=== PATIENT | male | born 1950 | race Caucasian/White ===

== ENCOUNTER 2023-09-10 14:56 | Emergency (ER) | payer MEDICARE, OTHER, SELFPAY ==
[2023-09-10] VITALS (14 sets, daily range): BP systolic 98–131; BP diastolic 66–87; BMI 37.3
[2023-09-10 15:32] LABS: % Basophils 0.4 % (0-2); % Eosinophils 1.6 % (0-6); % Immature Granulocytes 0.2 % (0-0.5); % Lymphocytes 18.5 % (20.5-51.1); % Monocytes 6.9 % (1.7-9.3); % Neutrophils 72.4 % (42.2-75.2); Absolute Eosinophils 0.2 10^3/uL (0-0.7); Absolute Lymphocytes 1.7 10^3/uL (1.2-3.4); Absolute Monocytes 0.6 10^3/uL (0.1-0.6); Absolute Neutrophils 6.6 10^3/uL (1.4-6.5); Hemoglobin 14.8 g/dL (13.0-18.0); Mean Corp Hgb Conc. 34.4 g/dL (33.0-37.0); Mean Corpuscular Hgb 28.6 pg (27.0-31.0); Mean Platelet Volume 9.3 fL (7.4-10.4); Nucleated Red Blood Cells % 0 % (-); Platelet Count 208 10^3/uL (130-400); Red Blood Cell Count 5.18 10^6/uL (4.70-6.10); Red Cell Dist. Width 13.2 % (11.5-14.5); White Blood Cell Count 9.2 10^3/uL (4.8-10.8)
[2023-09-10 15:46] LABS: ALT (SGPT) 31 U/L (0-50); AST (SGOT) 38 U/L (17-59); Albumin 3.9 g/dl (3.5-5.0); Alkaline Phosphatase 70 U/L (38-126); Blood Urea Nitrogen 21 mg/dl (9-20); Carbon Dioxide 28 mmol/L (22-30); Chloride 103 mmol/L (98-107); Glucose 145 mg/dl (70-99); Potassium 4.1 mmol/L (3.5-5.1); Sodium 134 mmol/L (135-145); Total Bilirubin 0.9 mg/dl (0.2-1.3); Total Protein 6.1 g/dl (6.3-8.2); eGFR 57.65
[2023-09-10 15:57] LABS: Troponin I < 0.012 ng/ml
--- NOTE | 2023-09-10 17:17 | ED.GENMED ---
History of Present Illness
General
Chief Complaint: Heart Rate Problem
Source: patient
Time Seen by Provider: 09/10/23 16:50
Travel History
Have you had any contact with someone who has COVID-19?: No
Do you have any symptoms of coronavirus? Fever > 100 degrees, chills, cough, shortness of breath, sore throat, loss of taste or smell, muscle aches, or headache?: No
History of Present Illness
History of Present Illness:
73-year-old male brought to the emergency room for evaluation of rapid heart rate, dizziness, generalized weakness. Symptoms began this morning. Patient does have history of A-fib. He has been prescribed Eliquis and has been taking it. He is
confident he has not missed any doses over the past 2 weeks. Patient does not have chest pain per se. Patient has had cardioversions x 2. Patient's uppers edge burnisher is Dr. Dorsey.
Past History
Past History
ED Past Medical History: Arrthythmia (afib), HTN, Hypercholesterolemia and Other (Crohn's disease, sleep apnea, atrial fibrillation)
ED Past Surgical History: Other (History of bowel surgery as well as a history of back surgery for disc protrusion)
Social History
Tobacco: Non-smoker
Alcohol: Occasional
Personal:
Living: with family
Employment: Employed
Phy Exam
Physical Exam
Physical Exam:
General: Awake, Alert, Oriented X3. No acute distress.
Vitals: Tachycardic
Head: Atraumatic
Eyes: Pupils equal, EOMI
Throat: Airway intact, no exudates
Neck: Trachea midline
Lungs: Clear and equal b/l
Heart: Regular rate, no murmurs
Abd: Soft, Nontender, No pulsatile mass
Neuro: Nonfocal
Skin: Warm, dry, no rash
Extremities: pulses equal b/l, no edema
Course
Orders/Labs/Results
Orders:
Orders
04/08/24 15:03
Electrocardiogram (*1) Urgent
Reason for Study: Chest Pain
09/10/23 15:04
EKG- Treatment ONCE
09/10/23 15:16
Complete Blood Count/With Diff Urgent
Comprehensive Metabolic Panel Urgent
Troponin I Urgent
09/10/23 17:09
Propofol [Diprivan] 20 ml .ROUTE .STK-MED
09/10/23 17:32
Electrocardiogram (*1) Urgent
Reason for Study: Atrial Fibrillation
EKG- Treatment ONCE
Abnormal Lab Results
09/10/23
15:16
Absolute Neuts (auto) 6.6 H 10^3/uL
(1.4-6.5)
Lymphocytes % 18.5 L %
(20.5-51.1)
Sodium 134 L mmol/L
(135-145)
BUN 21 H mg/dl
(9-20)
Glucose 145 H mg/dl
(70-99)
Total Protein 6.1 L g/dl
(6.3-8.2)
09/10/23 15:16
09/10/23 15:16
Vital Signs
Initial and Last Documented VS:
Initial Vital Signs
Temp Pulse Resp BP Pulse Ox
98.1 F 70 18 119/81 98
09/10/23 15:02 09/10/23 15:02 09/10/23 15:02 09/10/23 15:02 09/10/23 15:02
Last Documented Vital Signs
Temp Pulse Resp BP Pulse Ox
98.1 F 71 11 131/77 96
09/10/23 15:02 09/10/23 18:30 09/10/23 18:15 09/10/23 18:30 09/10/23 18:30
Procedures
Cardioversion
Indication:: Afib
Synchronized?: Yes
Energy Used: 200 joules
Successful?: Yes
ASA Risk Score: Class II
Any reaction or bad outcome to prior sedation/anesthesia?: No history of a reaction
Sedation level to be attained: moderate
Chart and allergies reviewed: Yes
Patient reassessed prior to sedation: Yes
Time out completed at (validating right patient & procedure): 17:26
History of difficult intubation: No
Airway free of obstruction: Yes
Patient has a gag reflex: Yes
Patient is able to open mouth: Yes
Patient has no dentures: Yes
Patient has no loose teeth: Yes
Medication administered by Provider during Moderate Sedation: IV Propofol (mg)
Total dose administered: 90
Time drug administered: 17:26
Start Time: 17:26
Stop Time: 17:41
MDM/Problems Addressed
Differential Diagnosis Includes:
Paroxysmal atrial fibrillation, PACs, SVT
MDM/Problems Addressed:
EKG is clearly A-fib. Patient is interested in just getting cardioverted. He is a good candidate as he is been compliant with his anticoagulation. Patient tolerated procedure well. After observation post sedation he returned to baseline.
Patient stable for discharge home. Recommend he call his uppers edge burnisher to arrange follow-up.
*Pulse Oximetry
Patient hypoxic: no
*EKG
Interpreted by ED Provider?: Yes
Interpretation: abnormal
Heart Rate: 146
Rate: tachycardiac
Rhythm: a-fib
Interval: normal interval
QRS Pattern: normal QRS
Ischemia: non-specific ST changes
*Software Configuration Analyst Interpretation
Rate: tachycardiac
Interpretation: abnormal
Heart Rate: 146
Rhythm: a-fib
*Critical Care Note
Total Time (30-74mins, 75-104mins- exclusive of procedures): Not Applicable
Update Note
Update Note:
Repeat EKG shows normal sinus rhythm
ED Attending Note
-
Portions of this chart may have been created with voice recognition software.� Occasional wrong word or��sound alike� substitutions may have occurred due to the inherent limitations of voice recognition software.
Discharge Plan
Departure
Patient Disposition: Home (Routine Discharge)
Date of Disposition: 09/10/23
Time of Disposition: 18:55
Patient with high blood pressure during this ER visit?: Yes
Condition: Good
Discharge Problem:
Paroxysmal A-fib
Instructions: Atrial Fibrillation (DC), Procedural Sedation, Adult ED
Prescriptions:
No Action
simvastatin 10 MG tablet
10 mg PO HS
tamsulosin 0.4 MG capsule
0.4 mg PO DAILY
cyanocobalamin (vitamin B-12) 1,000 MCG/ML solution
1,000 mcg IM MONTHLY
dutasteride 0.5 MG capsule
0.5 mg PO DAILY
glucosam-sod chondro-vit C-kevon 1 EACH tablet
1 ea PO DAILY
coenzyme Q10 50 MG tablet,chewable
200 mg PO DAILY
metoprolol succinate 25 MG tablet extended release 24 hr
25 mg PO DAILY
magnesium 500 mg Tablet
500 mg PO DAILY
eye lubricant combination no.1 2-0.9-1.8 % Drops
See Rx Instructions .ROUTE .COMPLEX
Rx Instructions:
1 drp into the eye(s)
clobetasol 0.025 % Cream
1 applic TOPICAL HS PRN (Reason: rash)
furosemide 40 mg Tablet
60 mg PO DAILY Qty: 1 0RF
Rx Instructions:
Please note dose increase- 1 1/2 tablets daily
Eliquis 5 MG tablet
5 mg PO BID Qty: 0 0RF
Rx Instructions:
Ok to resume tonight, 03/14 at usual time
quinapril [Accupril] 40 mg tablet
40 mg PO DAILY Qty: 90 5RF
Referrals:
Mika Francisco MD [Family Provider] -
Eryn Dykes DO [Active] -
Interventions
Interventions:
*Risk Screen - Suicide Last Done: 09/10/23 17:20
*General Assessment Last Done: 09/10/23 17:19
*Neglect/Abuse Screening Last Done: 09/10/23 17:19
ED- Fall Risk Assessment Last Done: 09/10/23 19:05
*Nursing Disposition Last Done: 09/10/23 19:05
ED- Cardiac Assessment Last Done: 09/10/23 16:43
ED- Pulmonary Assessment Last Done: 09/10/23 16:43
Discharge Date and Time
Discharge Date/Time: 09/10/23 19:06
Print Language: SAMI
== END 2023-09-10 19:06 | disposition home or self-care (01) ==
LOC: EMR 14:56
PROVIDERS: Emergency Medicine; EMERGENCY PHYSICIAN Emergency Medicine; FAMILY PHYSICIAN Family Medicine
DX: I48.0 Paroxysmal atrial fibrillation (principal); R00.2 Palpitations; R42 Dizziness and giddiness; R53.1 Weakness; I48.91 Unspecified atrial fibrillation; I10 Essential (primary) hypertension; E78.00 Pure hypercholesterolemia, unspecified; K50.90 Crohn's disease, unspecified, without complications; G47.30 Sleep apnea, unspecified
CPT/HCPCS: 99284; 92960; 80053; 84484; 85025; 93005

== ENCOUNTER 2024-01-07 16:17 | Emergency (ER) | payer MEDICARE, OTHER, SELFPAY ==
[2024-01-07] VITALS (10 sets, daily range): BP systolic 90–120; BP diastolic 65–97
--- NOTE | 2024-01-07 16:51 | ED.GENMED ---
History of Present Illness
General
Chief Complaint: Heart Rate Problem
Source: patient
Exam Limitations: none
Time Seen by Provider: 01/07/24 16:46
History of Present Illness
History of Present Illness:
See MDM
Past History
Past History
ED Past Medical History: Arrthythmia (afib), HTN, Hypercholesterolemia and Other (Crohn's disease, sleep apnea, atrial fibrillation)
ED Past Surgical History: Other (History of bowel surgery as well as a history of back surgery for disc protrusion)
Social History
Tobacco: Non-smoker
Alcohol: Occasional
Personal:
Living: with family
Employment: Employed
Phy Exam
Physical Exam
Physical Exam:
See MDM
Course
Orders/Labs/Results
Orders:
Orders
01/07/24 16:20
Electrocardiogram (*1) Urgent
Reason for Study: Atrial Fibrillation
EKG- Treatment ONCE
01/07/24 16:50
0.9% Sodium Chloride 500 ml [Nss] 500 ml IV BOLUS
Diltiazem HCl [Cardizem] 20 mg IV NOW STA
01/07/24 16:55
Complete Blood Count/With Diff Urgent
Comprehensive Metabolic Panel Urgent
Magnesium Urgent
Protime/PTT Urgent
01/07/24 18:00
Propofol [Diprivan] 20 ml .ROUTE .STK-MED
Abnormal Lab Results
01/07/24
16:55
MCV 79.2 L fL
(80.0-94.0)
Absolute Neuts (auto) 7.9 H 10^3/uL
(1.4-6.5)
Absolute Lymphs (auto) 1.1 L 10^3/uL
(1.2-3.4)
Neutrophils % 80.7 H %
(42.2-75.2)
Lymphocytes % 11.1 L %
(20.5-51.1)
BUN 25 H mg/dl
(9-20)
Glucose 117 H mg/dl
(70-99)
Total Protein 6.1 L g/dl
(6.3-8.2)
01/07/24 16:55
01/07/24 16:55
Vital Signs
Initial and Last Documented VS:
Initial Vital Signs
Temp Pulse Resp BP Pulse Ox
98.5 F 150 18 104/70 99
01/07/24 16:28 01/07/24 16:28 01/07/24 16:28 01/07/24 16:28 01/07/24 16:28
Last Documented Vital Signs
Temp Pulse Resp BP Pulse Ox
98.5 F 145 13 113/97 99
01/07/24 16:28 01/07/24 18:00 01/07/24 18:00 01/07/24 17:00 01/07/24 18:00
Procedures
Moderate Sedation
ASA Risk Score: Class II
Chart and allergies reviewed: Yes
Consent for anesthesia obtained: Yes
Time out completed (validating right patient & procedure): Yes
Moderate Sedation Start Time(when first medication is given): 18:18
History of difficult intubation: No
Airway free of obstruction: Yes
Patient has a gag reflex: Yes
Patient is able to open mouth: Yes
Patient has no dentures: Yes
Patient has no loose teeth: Yes
Medication administered by Provider during Moderate Sedation: IV Propofol (mg)
Total dose administered: 75
Time drug administered: 18:18
Moderate Sedation Procedure End Time: 18:30
Cardioversion
Indication:: Afib
Performed by:: Rey Vargas DO
Synchronized?: Yes
Energy Used: 150 joules
Number of attempts: 1
Successful?: Yes
Complications: None
ASA Risk Score: Class II
Any reaction or bad outcome to prior sedation/anesthesia?: No history of a reaction
Sedation level to be attained: moderate
Chart and allergies reviewed: Yes
Patient reassessed prior to sedation: Yes
Time out completed at (validating right patient & procedure): 18:16
History of difficult intubation: No
Airway free of obstruction: Yes
Patient has a gag reflex: Yes
Patient is able to open mouth: Yes
Patient has no dentures: Yes
Patient has no loose teeth: Yes
Medication administered by Provider during Moderate Sedation: IV Propofol (mg)
Total dose administered: 75
Time drug administered: 18:18
Start Time: 18:18
Stop Time: 18:30
MDM/Problems Addressed
Differential Diagnosis Includes:
HPI and MDM Narrative:
73-year-old male presenting with palpitations. Patient has a history of A-fib and states he has been cardioverted before. He claims compliance with Eliquis. Patient took an extra metoprolol earlier today with no relief. Symptoms started after
eating lunch.
On exam, he is well-appearing and nontoxic. He is tachycardic and irregular. Will give dose of IV Cardizem obtain basic blood work before discussing electrical cardioversion.
Physical exam
General: Well appearing and non-toxic
HEENT: protecting airway
Neck: appears supple
CV: No evidence of cyanosis. Tachycardic and regular
Resp: No accessory muscle use
Abd: Non-distended
Extremities: No deformities
Neuro: alert
Psych: Normal affect
Skin: Intact
Problems Addressed including Acute and Chronic Conditions affecting care:
1. A-fib with RVR
Acuity: acute
Prognosis: unstable
Details: Will give dose of IV Cardizem and attempt to chemically cardiovert.
Updates
Cardizem did not alter his heart rate. Blood work without significant abnormality. Patient signed consent for cardioversion.
Patient tolerated cardioversion well and is now in sinus rhythm. states that his avionic technician had mentioned ablation in the past. Discussed having this conversation again with cardiology
Differential Diagnosis (but not limited to): A-fib with RVR, dehydration, electrolyte abnormalities
Testing considered: Troponin
Drug therapy (if applicable): OTC meds, please see d/c instruction regarding Rx drugs
Amount and/or Complexity of Data Reviewed
Clinical info obtained from: Patient. states that cardiology had reference ablation
External data reviewed: N/A
Labs I independently reviewed (but not limited to): White blood cell count normal, hemoglobin normal, magnesium normal
Radiology: N/A
Pulse Ox: not hypoxic
EKG independently reviewed: A-fib with RVR, normal axis no STEMI
Production Helper: A-fib with RVR
Critical Care: The high probability of a clinically significant, sudden or life threatening deterioration of the cardiovascular system(s) required my full and direct attention, intervention and personal management. The aggregate critical care time
was 33 minutes. This time is in addition to time spent performing reported procedures but includes the following:
[x] Data Review and interpretation
[x] Patient assessment and monitoring of vital signs
[x] Documentation
[x] Medication orders and management
Risk of Complication:
Social Determinants of health: Good social support
Discussed with other providers: N/A
Escalation of Care includes Admit/Obs: After being observed in the Emergency Department, pt stable for discharge.
Occasional wrong word or 'sound a like' substitutions may have occurred due to the inherent limitations of voice recognition software. Read the chart carefully and recognize, using context, where substitutions have occurred.
*Critical Care Note
Total Time (30-74mins, 75-104mins- exclusive of procedures): 33 min
ED Attending Note
-
Portions of this chart may have been created with voice recognition software.� Occasional wrong word or��sound alike� substitutions may have occurred due to the inherent limitations of voice recognition software.
Discharge Plan
Departure
Patient Disposition: Home (Routine Discharge)
Date of Disposition: 01/07/24
Time of Disposition: 18:26
Patient with high blood pressure during this ER visit?: No
Discharge Problem:
Atrial fibrillation with RVR
Instructions: Atrial Fibrillation (DC), Cardioversion (DC), MODERATE SEDATION ADULT
Prescriptions:
No Action
simvastatin 10 MG tablet
10 mg PO HS
tamsulosin 0.4 MG capsule
0.4 mg PO DAILY
cyanocobalamin (vitamin B-12) 1,000 MCG/ML solution
1,000 mcg IM MONTHLY
dutasteride 0.5 MG capsule
0.5 mg PO DAILY
glucosam-sod chondro-vit C-kevon 1 EACH tablet
1 ea PO DAILY
coenzyme Q10 50 MG tablet,chewable
200 mg PO DAILY
metoprolol succinate 25 MG tablet extended release 24 hr
25 mg PO DAILY
magnesium 500 mg Tablet
500 mg PO DAILY
eye lubricant combination no.1 2-0.9-1.8 % Drops
See Rx Instructions .ROUTE .COMPLEX
Rx Instructions:
1 drp into the eye(s)
clobetasol 0.025 % Cream
1 applic TOPICAL HS PRN (Reason: rash)
furosemide 40 mg Tablet
60 mg PO DAILY Qty: 1 0RF
Rx Instructions:
Please note dose increase- 1 1/2 tablets daily
Eliquis 5 MG tablet
5 mg PO BID Qty: 0 0RF
Rx Instructions:
Ok to resume tonight, 03/14 at usual time
quinapril [Accupril] 40 mg tablet
40 mg PO DAILY Qty: 90 5RF
Referrals:
Mika Francisco MD [Family Provider] -
Activity Restrictions/Additional Instructions:
Please return for any worsening symptoms.
You may return at any time if you have further concerns.
Please follow up with your doctor at the first available appointment, preferably this week.
Continue your medications as prescribed. Please discuss your recurrent A-fib with your avionic technician.
Thank you for choosing [facility].
Interventions
Interventions:
*Risk Screen - Suicide Last Done: 01/07/24 16:28
*General Assessment Last Done: 01/07/24 16:28
*Neglect/Abuse Screening Last Done: 01/07/24 16:28
*ED COVID-19 Vaccine History Last Done: 01/07/24 16:28
Discharge Date and Time
Print Language: INDONESIAN
[2024-01-07] MEDS: CARDIZEM 20 MG IV (16:57)
[2024-01-07] MEDS: NSS 500 IV (16:58)
[2024-01-07 17:23] LABS: ALT (SGPT) 24 U/L (0-50); AST (SGOT) 36 U/L (17-59); Alkaline Phosphatase 67 U/L (38-126); Blood Urea Nitrogen 25 mg/dl (9-20); Calcium 9.2 mg/dl (8.4-10.2); Carbon Dioxide 25 mmol/L (22-30); Chloride 105 mmol/L (98-107); Glucose 117 mg/dl (70-99); Magnesium 1.8 mg/dl (1.6-2.3); Potassium 3.8 mmol/L (3.5-5.1); Sodium 139 mmol/L (135-145); Total Bilirubin 1.1 mg/dl (0.2-1.3); Total Protein 6.1 g/dl (6.3-8.2); eGFR 57.65
[2024-01-07 17:43] LABS: APTT 34.5 Sec (23.4-35.0); INR 1.12; PT 14.2 Sec (11.4-14.6)
[2024-01-07 18:13] LABS: Hematocrit 40.8 % (39.0-52.0); Hemoglobin 14.7 g/dL (13.0-18.0); Mean Corpuscular Hgb 28.5 pg (27.0-31.0); Mean Corpuscular Volume 79.2 fL (80.0-94.0); Mean Platelet Volume 10.1 fL (7.4-10.4); Platelet Count 240 10^3/uL (130-400); Red Blood Cell Count 5.15 10^6/uL (4.70-6.10); White Blood Cell Count 9.8 10^3/uL (4.8-10.8)
[2024-01-07 18:14] LABS: % Basophils 0.4 % (0-2); % Eosinophils 1.4 % (0-6); % Immature Granulocytes 0.2 % (0-0.5); % Lymphocytes 11.1 % (20.5-51.1); % Monocytes 6.2 % (1.7-9.3); % Neutrophils 80.7 % (42.2-75.2); Absolute Eosinophils 0.1 10^3/uL (0-0.7); Absolute Lymphocytes 1.1 10^3/uL (1.2-3.4); Absolute Monocytes 0.6 10^3/uL (0.1-0.6); Absolute Neutrophils 7.9 10^3/uL (1.4-6.5); Nucleated Red Blood Cells % 0 % (-)
== END 2024-01-07 19:35 | disposition home or self-care (01) ==
LOC: EMR 16:17
PROVIDERS: Emergency Medicine; EMERGENCY PHYSICIAN Student in an Organized Health Care Education/Training Program; FAMILY PHYSICIAN Family Medicine
DX: I48.91 Unspecified atrial fibrillation (principal); I10 Essential (primary) hypertension; E78.00 Pure hypercholesterolemia, unspecified; K50.90 Crohn's disease, unspecified, without complications; G47.30 Sleep apnea, unspecified; Z79.01 Long term (current) use of anticoagulants; Z88.8 Allergy status to other drugs, medicaments and biological substances; Z91.040 Latex allergy status
CPT/HCPCS: 99291; 92960; 99152; 96374; 80053; 83735; 85025; 85610; 85730; 93005

== ENCOUNTER 2024-05-14 08:25 | Day surgery (SDC) | payer MEDICARE, OTHER, SELFPAY ==
[2024-04-17 12:53] VITALS: BMI 37.7
[2024-05-14] VITALS (13 sets, daily range): BP systolic 127–149; BP diastolic 66–104
[2024-05-14 09:13] LABS: Glucose - Point of Care 162 mg/dl (70-99)
[2024-05-14 11:17] LABS: ACT-LR - POC 269 Seconds (116-155)
[2024-05-14 11:25] LABS: Glucose - Point of Care 119 mg/dl (70-99)
[2024-05-14 11:35] LABS: ACT-LR - POC 314 Seconds (116-155)
--- NOTE | 2024-05-14 11:56 | ITS.CL.ABL ---
Circular Saw Operator - Ablation
Ablation
Procedure Report:
ELECTROPHYSIOLOGY ABLATION STUDY
�
DATE:: May 14, 2024�����������������������������REFERRING: Dr. Mauricio Momin
�
INDICATION: Paroxysmal supraventricular tachycardia in the form of atrial fibrillation.� Also noted to have a paroxysmal atrial tachycardia or atypical atrial flutter possibly consistent with a pulmonary vein atrial tachycardia
�
HISTORY: See H and P.��As above
�
ANTIARRHYTHMIC DRUG: Discussed class I class III and arrhythmics patient opted for pulmonary vein isolation
�
PRE-PROCEDURE EMERSON: No atrial thrombus on intracardiac ultrasound and CT scan
�
PRESENTING RHYTHM: Sinus rhythm
�
'TIME-OUT':��called and confirmed.
�
SEDATION/ANESTHESIA:��provided via the anesthesia department using general anesthesia (LMA).
�
INTRAVENOUS/ARTERIAL ACCESS:
Right femoral venous - 10 Fr,
Left femoral venous - 8 Fr, 6 Fr
[id number] suture to bilateral femoral venous sites
Ultrasound guidance for bilateral femoral vein access was utilized by me to obtain access with demonstration of normal anatomy
CHADS-VASC Score:
�
HAS-Bled Score
�
PROCEDURE:
1.��A decapolar CS catheter was placed within the CS for mapping and pacing.��This was also used as the reference catheter for the 3-D map.
�
2. The intracardiac ultrasound catheter was positioned in the RA to identify the FO for targeting of transseptal puncture, assist��in identification of the pulmonary vein ostia, monitoring pre and post ablation pulmonary vein flow velocities,
monitoring for 'bubble' formation during RF application as a sign of thermal injury,��and to monitor for pericardial effusion during mapping and ablation procedure.���Left atrial size, LV ejection fraction, and pulmonary vein flows were monitored
pre and post ablation procedure. The other valves were inspected and found to be free of significant regurgitation or stenosis.
�
3.��Half of the calculated heparin bolus was administered prior to the first transeptal puncture.��Transseptal puncture was performed to diagnose RA and LA pressure so that safetey of LA mapping and ablation could be further assessed, and to access
the left atrium and pulmonary veins for mapping and ablation.��This entailed advancing an 16 Hungarian RF wire sheath apparatus with dilator into the superior vena cava and withdrawing both (monitoring intracardiac ultrasound, fluoroscopy and tip
pressure) with the tip oriented toward the atrial septum.��The fossa ovalis was engaged (indicated by sudden displacement of the sheath tip as well as tenting of the fossa seen on intracardiac ultrasound).��Left atrial access required a pass with
the [place] needle extended.��Left atrial catheter position was confirmed by pressure monitoring (RA mean pressure 8 mm Hg and LA mean presure 12 mm Hg), LA saturation (99%),��as well as fluoroscopy.��The sheath was advanced over the dilator
and positioned in the left atrium.���The remainder of the calculated heparin bolus was administered and heparin was
infused to maintain ACT at 300 -350 seconds throughout the case.
�
4.��RA pacing was performed via the proximal decapolar poles and LA pacing was performed via the distal decapolr poles.
�
5. A quadrapolar catheter was first positioned at the His position for His Bundle recording which was tagged via the 3-D Navex sytem, and then passed to the RVA for RV pacing and recording.
�
6. The multipolar catheter and PFA catheter were placed in each of the LIPV, LSPV, RSPV and the RIPV.��
�
7.��Next, a 3-D map was created using Navex.���A 3-D reconstructed CT image was compared to the 3-D Navex map to assist in anatomic interpretation, mapping and ablation.��The CT image and the NavX image were fused.
�
8. A total of 50 lesions were given. The veins were addressed in all open basket mode and flat remote to the floor posterior wall and roof. APD's couplets and triplets were seen from the right superior and left superior pulmonary veins as well as
short runs of atrial tachycardia from the right superior pulmonary vein. Extrapulmonary and substrate was modified in the roof floor and true posterior wall as well as the interatrial septum.
9. Post ablation EP study with burst pacing down to atrial refractoriness at 230 ms as well as atrial extremely did not demonstrate any other nonpulmonary triggers for atrial fibrillation or atrial tach arrhythmia.
TOTAL FLOURO TIME: 12.6 minutes
�
TOTAL RF DURATION: 0 minutes
�
REVERSAL OF HEPARIN: 35 mg of protamine, slow IV administration
�
COMPLICATIONS:
None
Intracardiac US shows no pericardial effusion post ablation.
�
SUMMARY:��
Complex left atrial mapping and ablation.
Isolation of all 4 pulmonary veins with entrance and exit block achieved and the left atrial posterior wall was isolated from roof to 1.5 cm below the veins at the floor.
�
RECOMMENDATIONS:
1. Out of bed in 4 hours
2. Resume anticoagulation
3.��Consider same-day discharge
4.��Outpatient follow-up with Dr. Mauricio Momin
�
Copy to: Dr. Mauricio Momin
�
--- NOTE | 2024-05-14 16:30 | W.PN.UPDATE ---
Update Note
Progress Note Update
Pt seen post PFA. Bilat groin sites without ht/bleeding. OOB ambulating, urinating without difficulty. Post EKG SB/SR 50-60s, tele with short bursts AT 140s that are self limiting and asymptomatic. Resume eliquis tonight, as well as metoprolol and
other meds. Followup at [facility] as scheduled. Home today if groin sites/tele remain stable.
== END 2024-05-14 17:01 | disposition home or self-care (01) ==
LOC: CATH 08:25
PROVIDERS: ATTENDING PHYSICIAN Internal Medicine Cardiovascular Disease; FAMILY PHYSICIAN Family Medicine; OTHER PHYSICIAN Internal Medicine Cardiovascular Disease
DX: I48.0 Paroxysmal atrial fibrillation (principal); I48.4 Atypical atrial flutter; G47.33 Obstructive sleep apnea (adult) (pediatric); I47.20 Ventricular tachycardia, unspecified; I10 Essential (primary) hypertension; E78.5 Hyperlipidemia, unspecified; E11.9 Type 2 diabetes mellitus without complications; Z79.84 Long term (current) use of oral hypoglycemic drugs; E66.9 Obesity, unspecified; Z68.37 Body mass index [BMI] 37.0-37.9, adult; K21.9 Gastro-esophageal reflux disease without esophagitis; N40.0 Benign prostatic hyperplasia without lower urinary tract symptoms; K50.90 Crohn's disease, unspecified, without complications; Z79.899 Other long term (current) drug therapy; Z79.01 Long term (current) use of anticoagulants
CPT/HCPCS: C1732; C1894; C1892; C1759; 82962; 85347; 86900; 86901; 93005; 93656; 93657; C1733; C1766

== ENCOUNTER → 2024-12-10 08:25 | Outpatient (REF) | payer MEDICARE, OTHER, SELFPAY | LOC: HWRCS 08:25 | PROVIDERS: ATTENDING PHYSICIAN Internal Medicine Cardiovascular Disease; FAMILY PHYSICIAN Family Medicine | DX: I48.0 Paroxysmal atrial fibrillation (principal) | CPT/HCPCS: 93306 ==